=== PATIENT | female | born 1980 | race Caucasian/White ===

== ENCOUNTER → 2017-04-14 | Emergency (ER) | payer OTHER ==
[~2017-04-14] VITALS: Ht 172.7 cm; Wt 68.0 kg
[~2017-04-14] MED LIST: DRAMAMINE50 M1; IMODIUM A-D2 MG PO; MACRODANTIN100 MG PO; PEPCID20 MG PO; PEPCID40 MG PO; RELPAX40 MG PO; ULTRACET PO; ZOFRAN4 MG PO
== END | disposition home or self-care (01) ==
LOC: ER 08:17
DX: N39.0 Urinary tract infection, site not specified (principal); R10.31 Right lower quadrant pain

== ENCOUNTER → 2017-06-20 | Emergency (ER) | payer OTHER ==
[~2017-06-20] VITALS: Ht 172.7 cm; Wt 69.9 kg
== END | disposition home or self-care (01) ==
LOC: ER 07:44
DX: B34.9 Viral infection, unspecified (principal); J02.9 Acute pharyngitis, unspecified

== ENCOUNTER 2017-11-04 17:34 | Emergency (ER) | payer OTHER ==
[~2017-11-04] VITALS: Ht 172.7 cm; Wt 68.0 kg
[2017-11-05] MEDS ORDERED: ULTRACET PO (00:02)
[2017-11-05] MEDS ORDERED: LEVSIN/SL0.125 MG PO (00:02)
[2017-11-05] MEDS ORDERED: ZOFRAN ODT4 MG PO (00:02)
[2017-11-05] MEDS ORDERED: INTESTINEX680 M1 PO (00:02)
[2017-11-05] MEDS ORDERED: KETO10TA2 PO (00:02)
[2017-11-05] MEDS ORDERED: CIPRO500 MG PO (00:02)
== END 2017-11-05 02:20 | disposition home or self-care (01) ==
LOC: ER 17:34
DX: K52.9 Noninfective gastroenteritis and colitis, unspecified (principal); N20.1 Calculus of ureter; R10.30 Lower abdominal pain, unspecified

== ENCOUNTER 2017-12-26 16:57 | Emergency (ER) | payer OTHER ==
[~2017-12-26] VITALS: Ht 172.7 cm; Wt 70.3 kg
[~2017-12-26 16:57] MED LIST changes: +CIPRO500 MG PO; +INTESTINEX680 M1 PO; +KETO10TA2 PO; +LEVSIN/SL0.125 MG PO; +ZOFRAN ODT4 MG PO
== END 2017-12-26 21:12 | disposition home or self-care (01) ==
LOC: ER 16:57
DX: J45.998 Other asthma (principal); J40 Bronchitis, not specified as acute or chronic; J11.1 Influenza due to unidentified influenza virus with other respiratory manifestations

== ENCOUNTER → 2018-05-17 | Outpatient (CLI) | payer OTHER | END | disposition home or self-care (01) | LOC: SONOGRAMA 13:30 | DX: N20.2 Calculus of kidney with calculus of ureter (principal); Z30.431 Encounter for routine checking of intrauterine contraceptive device ==

== ENCOUNTER 2018-10-18 23:11 | Emergency (ER) | payer OTHER ==
[~2018-10-18] VITALS: Ht 172.7 cm; Wt 65.3 kg
[2018-10-19] MEDS ORDERED: GLIMEPIRIDE4 MG PO (04:40)
== END 2018-10-19 04:53 | disposition home or self-care (01) ==
LOC: ER 23:11
DX: E11.65 Type 2 diabetes mellitus with hyperglycemia (principal)

== ENCOUNTER 2018-11-29 00:09 | Emergency (ER) | payer OTHER ==
[~2018-11-29] VITALS: Ht 172.7 cm; Wt 67.1 kg
[~2018-11-29 00:09] MED LIST changes: +GLIMEPIRIDE4 MG PO
[2018-11-29] MEDS ORDERED: NAPR500T14 PO (03:12)
== END 2018-11-29 03:31 | disposition home or self-care (01) ==
LOC: ER 00:09
DX: S93.691A Other sprain of right foot, initial encounter (principal); X50.3XXA Overexertion from repetitive movements, initial encounter; Y93.89 Activity, other specified; Y92.89 Other specified places as the place of occurrence of the external cause; Y99.8 Other external cause status

== ENCOUNTER 2020-05-16 16:50 | Emergency (ER) | payer OTHER ==
[~2020-05-16] VITALS: Ht 172.7 cm; Wt 72.6 kg
[~2020-05-16 16:50] MED LIST changes: +NAPR500T14 PO
[2020-05-16] MEDS ORDERED: HUMALOG100 UNIT/2 SUBCUTANEO (16:59)
[2020-05-16] MEDS ORDERED: [UNRECOGNIZED DRUG - OTHER] SUBCUTANEO (17:00)
== END 2020-05-16 20:06 | disposition home or self-care (01) ==
LOC: ER 16:50
DX: E11.65 Type 2 diabetes mellitus with hyperglycemia (principal)

== ENCOUNTER 2021-02-12 19:06 | Emergency (ER) | payer OTHER ==
[~2021-02-12] VITALS: Ht 167.6 cm; Wt 72.6 kg
[~2021-02-12 19:06] MED LIST changes: +HUMALOG100 UNIT/2 SUBCUTANEO; +[UNRECOGNIZED DRUG - OTHER] SUBCUTANEO
== END 2021-02-12 22:14 | disposition home or self-care (01) ==
LOC: ER 19:06
DX: U07.1 COVID-19 (principal); B34.9 Viral infection, unspecified

== ENCOUNTER → 2021-04-13 | Emergency (ER) | payer OTHER ==
[~2021-04-13] VITALS: Ht 172.7 cm; Wt 71.7 kg
== END | disposition home or self-care (01) ==
LOC: ER 18:44
DX: S39.82XA Other specified injuries of lower back, initial encounter (principal); V49.9XXA Car occupant (driver) (passenger) injured in unspecified traffic accident, initial encounter; Y92.89 Other specified places as the place of occurrence of the external cause; Y99.9 Unspecified external cause status

== ENCOUNTER 2021-11-14 11:40 | Emergency (ER) | payer OTHER ==
[~2021-11-14] VITALS: Ht 160 cm; Wt 61.2 kg
== END 2021-11-14 20:49 | disposition home or self-care (01) ==
LOC: ER 11:40
DX: R42 Dizziness and giddiness (principal); Z91.013 Allergy to seafood

== ENCOUNTER 2023-05-09 14:55 | Emergency (ER) | payer OTHER ==
[~2023-05-09] VITALS: Ht 172.7 cm; Wt 68.5 kg
[2023-05-09] MEDS ORDERED: [UNRECOGNIZED DRUG - OTHER] IJ (15:45)
[2023-05-09] MEDS ORDERED: ORPHENADRINE CITRATE 30 MG/ML AMPUL IM ONE (17:15)
[2023-05-09] MEDS ORDERED: TRAMADOL HCL 50 MG TABLET PO ONE (17:15)
[2023-05-09] MEDS ORDERED: KETOROLAC TROMETHAMINE 30 MG VIAL IM ONE (18:30)
== END 2023-05-09 19:18 | disposition home or self-care (01) ==
LOC: ER 14:56
DX: M54.89 Other dorsalgia (principal)

== ENCOUNTER 2024-06-22 13:35 | Emergency (ER) | payer OTHER ==
[~2024-06-22] VITALS: Ht 172.7 cm; Wt 68.0 kg
[~2024-06-22 13:35] MED LIST changes: +[UNRECOGNIZED DRUG - OTHER] IJ
[2024-06-22] MEDS ORDERED: ONDANSETRON HCL 2 MG/ML VIAL IV ONE (14:15)
[2024-06-22] MEDS ORDERED: FAMOTIDINE/PF 20 MG/2 ML VIAL IV ONE (14:15)
[2024-06-22] MEDS ORDERED: 0.9 % SODIUM CHLORIDE 1,000 ML IV ONE (14:30)
[2024-06-22] MEDS ORDERED: ONDANSETRON HCL 2 MG/ML VIAL ONE (14:52)
[2024-06-22] MEDS ORDERED: FAMOTIDINE/PF 20 MG/2 ML VIAL ONE (14:52)
[2024-06-22 15:04] LABS: HEMOGLOBIN 13.7 g/dL (12.0-15.00); MEAN CELL VOLUME 90.5 fL (80.00-100.00); MEAN CORPUSCULAR HEMOGLOBIN 30.3 pg (27.00-32.0); MEAN CORPUSCULAR HGB CONC 33.5 g/dl (32.0-36.0); PLATELET COUNT 261 K/uL (150-450); RED BLOOD COUNT 4.53 M/uL (4.00-6.00); RED CELL DISTRIBUTION WIDTH 13.5 % (11.5-14.5)
[2024-06-22 15:17] LABS: URINE APPEARANCE Clear; URINE BILIRRUBIN Negative (NEGATIVE); URINE BLOOD Negative; URINE COLOR Yellow; URINE LEUKOCYTE Negative; URINE NITRATE Negative; URINE PROTEIN Trace (NEGATIVE); URINE UROBILINOGEN 0.2 E.U./dl
[2024-06-22 15:18] LABS: URINE BACTERIA 174.9 uL (0.0-1933); URINE EPITHELIAL CELLS 6.9 uL (0.0-38.8); URINE RBC 2.2 uL (0.0-20.8); URINE WBC 2.6 uL (0.0-23.2)
[2024-06-22 15:38] LABS: ALBUMIN 3.6 gm/dL (3.4-5.0); BILIRUBIN TOTAL 0.29 mg/dL (0.3-1.2); CREATININE SERUM 1.02 mg/dL (0.55-1.02); GFR 58.6; GLOBULINA 3.5 G/DL (2.4-3.5); POTASSIUM 4.01 mEq/L (3.5-5.1); TOTAL PROTEIN 7.1 gm/dL (6.4-8.2)
[2024-06-22 16:17] LABS: URINE CAST 0.29 uL (0.0-1.40); URINE GLUCOSE >=1000 MG/DL (NEGATIVE); URINE KETONE 80 (NEGATIVE)
[2024-06-22] MEDS ORDERED: KETOROLAC TROMETHAMINE 30 MG VIAL IV ONE (19:30)
[2024-06-22] MEDS ORDERED: KETOROLAC TROMETHAMINE 30 MG VIAL ONE (19:43)
[2024-06-22 19:48] LABS: ABG PH 7.395 (7.35-7.45); ABG PO2 85.4 mmHg (80-100); ABG pCO2 36.3 mmHg (35-45); BASE EXCESS -2.6 mmol/l; BICARBONATE 21.7 mmol/l (23-25); SaO2 96.3 %; Tco2 22.8 mmol/l
[2024-06-22 20:12] LABS: allen test SATISFACTORY; mode ROOM AIR; o2 21 %; puncture site RADIAL RIGHT
[2024-06-22] MEDS ORDERED: INSULIN REGULAR, HUMAN 1,000 UNIT/10 ML UNITS SUBCUTANEO ONE (20:30)
[2024-06-22] MEDS ORDERED: PRILOSEC OTC20 MG PO (20:51)
[2024-06-22] MEDS ORDERED: CARAFATE1 GM PO (20:51)
[2024-06-22] MEDS ORDERED: PEPCID AC20 MG PO (20:51)
[2024-06-22] MEDS ORDERED: SUCRALFATE 1 G TABLET PO ONE (21:00)
== END 2024-06-22 22:02 ==
LOC: ER 13:35
PROVIDERS: Emergency Medicine
DX: K29.70 Gastritis, unspecified, without bleeding (principal); R10.13 Epigastric pain; J45.909 Unspecified asthma, uncomplicated; E10.65 Type 1 diabetes mellitus with hyperglycemia; Z79.4 Long term (current) use of insulin